=== PATIENT | female | born 1955 | race Caucasian/White ===

== ENCOUNTER 2024-10-04 13:26 | Inpatient (IN) | payer OTHER ==
[2024-10-04 15:18] LABS: ABSOLUTE IMMATURE GRANULOCYTES 0.12 x10^3/uL (0.0-0.031); BASOPHILS # 0.01 x10^3/uL (0.01-0.08); EOSINOPHIL % 0.4 % (0.7-5.8); EOSINOPHILS # 0.05 x10^3/uL (0.04-0.36); MCHC 31.7 g/dl (32.2-35.5); MEAN CELL VOLUME 93.5 fl (79.4-94.8); MEAN PLT VOLUME 11.6 fl (9.4-12.3); MONOCYTE # 0.82 x10^3/uL (0.24-0.86); MONOCYTE % 6.1 % (4.7-12.5); RDW 13.5 % (12.4-16.4)
[2024-10-04 15:25] LABS: BG HCT 30.0 % (32.4-45.2); VENOUS BASE EXCESS -5.4 mmol/L (-2-2); VENOUS O2 SATURATION 95.9 % (70-80); VENOUS PCO2 30.4 mmHg (38-52); VENOUS PH 7.401 (7.310-7.410)
[2024-10-04 15:52] LABS: CO2 23 mmol/L (21-32); GLUCOSE,RANDOM 123 mg/dL (74-106)
[2024-10-04 15:55] LABS: CREATININE 0.7 mg/dL (0.55-1.3); SGOT/AST 53 U/L (15-37)
[2024-10-04 15:57] LABS: TOT PROT 5.6 g/dl (6.4-8.2)
[2024-10-04 15:58] LABS: ALK PHOS 153 U/L (45-117)
[2024-10-04 16:05] LABS: EPI CELLS >36 /uL (0-25.1); HYALINE CASTS 2 /uL (0-3.1); URINE APPEARANCE CLOUDY; URINE BACTERIA 109 /uL (0-1359); URINE BILIRUBIN NEGATIVE (NEGATIVE); URINE COLOR YELLOW; URINE GLUCOSE (UA) NEGATIVE (NEGATIVE); URINE KETONE NEGATIVE (NEGATIVE); URINE LEUK ESTERASE 3+ (NEGATIVE); URINE NITRITE NEGATIVE (NEGATIVE); URINE PROTEIN 2+ (NEGATIVE); URINE UROBILINOGEN 1.0 mg/dL (0.2-1.0); URINE WBC 1192 /uL (0-25.8)
[2024-10-04 16:10] LABS: SGPT/ALT 12 U/L (13-61)
[2024-10-04 16:43] LABS: URINE RBC 39 /uL (0-23.9); YEAST NONE SEEN (NEGATIVE)
[2024-10-04] MEDS ORDERED: PIPERACILLIN/TAZOB 4.5 GM 4.5 GM/100 ML BAG IVPB ONE (16:50)
[2024-10-04] MEDS: VANCOMYCIN 1,000 MG in DEXTROSE 5%-WATER - 250 ML IVPB ONE (17:09)
[2024-10-04] MEDS: PIPERACILLIN/TAZOB 4.5 GM 4.5 GM in DEXTROSE 5%-WATER 100 ML IVPB ONE (17:09)
[2024-10-04] MEDS ORDERED: VANCOMYCIN 1 GM PREMIX (F) 1 GM/200 ML BAG ONE (17:43)
[2024-10-04] MEDS: VANCOMYCIN 1 GM PREMIX (F) 1 GM/200 ML BAG IVPB ONE (17:48)
[2024-10-04 20:08] LABS: CO2 24.0 mmol/L (21-32); GLUCOSE,RANDOM 117.0 mg/dL (74-106)
[2024-10-04 20:11] LABS: CREATININE 0.7 mg/dL (0.55-1.3)
[2024-10-05] MEDS ORDERED: ARTIFICIAL TEARS OPHTHALMIC DROPS OU PRN (02:27)
[2024-10-05] MEDS: levETIRAcetam 500 MG/5 ML INJECTION VIAL IVPB SCH (02:42)
[2024-10-05] MEDS: PIPERACILLIN/TAZOB 3.375 GM 3.375 GM in DEXTROSE 5%-WATER - 50 ML IVPB SCH (03:22)
[2024-10-05] MEDS: AZITHROMYCIN IVPB 500 MG in DEXTROSE 5%-WATER - 250 ML IVPB SCH (03:34)
[2024-10-05] MEDS ORDERED: ALBUTEROL SO4 0.083% IH SOL 2.5 MG/3 ML VIAL.NEB. NEB PRN (03:46)
[2024-10-05 03:48] VITALS: BMI 24.3
[2024-10-05] MEDS: ALBUTEROL SO4 2.5/IPRATROPIUM 0.5 INH SOL 3 ML VIAL.NEB. NEB SCH (04:20)
[2024-10-05] MEDS: VANCOMYCIN/WATER FOR INJ (PEG) 1,000 MG/200 ML BAG IVPB SCH (07:36)
[2024-10-05] MEDS: DOXYCYCLINE INJECTION 100 MG in DEXTROSE 5%-WATER 100 ML IVPB SCH (08:37)
[2024-10-05 09:03] LABS: IRON SERUM 15.0 ug/dL (50-175)
[2024-10-05] MEDS ORDERED: PREGABALIN 75 MG CAPSULE PO SCH (10:00)
[2024-10-05] MEDS ORDERED: DOXYCYCLINE INJECTION 100 MG in DEXTROSE 5%-WATER 100 ML IVPB SCH (10:00)
[2024-10-05] MEDS: PANTOPRAZOLE 40 MG TABLET PO SCH (10:07)
[2024-10-05] MEDS: SERTRALINE HCL 50 MG TABLET (FP) PO SCH (10:08)
[2024-10-05] MEDS: CELECOXIB 200 MG CAPSULE PO SCH (10:08)
[2024-10-05] MEDS: HEPARIN NA (PORCINE) 5,000 UNITS/ML 1ML VIAL SQ SCH (10:11)
[2024-10-05 10:21] VITALS: RESP 18
[2024-10-05 11:09] LABS: LDH 139.0 U/L (84-246)
[2024-10-05] MEDS: PREGABALIN 75 MG CAPSULE PO SCH (11:31)
[2024-10-05] MEDS: ROSUVASTATIN CA 5 MG TABLET PO SCH (22:16)
[2024-10-05] MEDS: DONEPEZIL HCL 5 MG TABLET (FP) PO SCH (22:16)
[2024-10-05] MEDS: traZODone HCL 50 MG TABLET (FP) PO SCH (22:17)
[2024-10-06 09:14] LABS: ABSOLUTE IMMATURE GRANULOCYTES 0.10 x10^3/uL (0.0-0.031); BASOPHILS # 0.02 x10^3/uL (0.01-0.08); EOSINOPHIL % 0.5 % (0.7-5.8); EOSINOPHILS # 0.04 x10^3/uL (0.04-0.36); MCHC 31.3 g/dl (32.2-35.5); MEAN CELL VOLUME 92.2 fl (79.4-94.8); MEAN PLT VOLUME 10.5 fl (9.4-12.3); MONOCYTE # 0.47 x10^3/uL (0.24-0.86); MONOCYTE % 5.3 % (4.7-12.5); RDW 13.2 % (12.4-16.4)
[2024-10-06 09:20] LABS: INR 1.28 (0.83-1.09); PROTHROMBIN TIME (PATIENT) 14.1 SEC (9.7-13.0)
[2024-10-06 09:23] LABS: ACTIVATED PTT 28.6 SECONDS (25.2-36.5)
[2024-10-06 09:58] LABS: CO2 25.0 mmol/L (21-32); GLUCOSE,RANDOM 109.0 mg/dL (74-106)
[2024-10-06] MEDS ORDERED: PATIENT'S OWN MEDICATION (NON-FORMULARY) (Omeprazole 20 MG Capsule.Dr) PO SCH (10:00)
[2024-10-06 10:02] LABS: CREATININE 0.5 mg/dL (0.55-1.3)
[2024-10-07] MEDS ORDERED: VANCOMYCIN/WATER FOR INJ (PEG) 1,000 MG/200 ML BAG IVPB SCH (06:00)
[2024-10-07] MEDS: ACETAMINOPHEN 325 MG TABLET (FP) PO ONE (07:02)
[2024-10-07] MEDS: PIPERACILLIN/TAZOB 3.375 GM 3.375 GM in DEXTROSE 5%-WATER - 50 ML IVPB SCH ×2 (17:36→18:21)
[2024-10-08 07:47] LABS: ABSOLUTE IMMATURE GRANULOCYTES 0.11 x10^3/uL (0.0-0.031); BASOPHILS # 0.01 x10^3/uL (0.01-0.08); EOSINOPHIL % 2.9 % (0.7-5.8); EOSINOPHILS # 0.17 x10^3/uL (0.04-0.36); MCHC 31.5 g/dl (32.2-35.5); MEAN CELL VOLUME 93.8 fl (79.4-94.8); MEAN PLT VOLUME 10.0 fl (9.4-12.3); MONOCYTE # 0.33 x10^3/uL (0.24-0.86); MONOCYTE % 5.7 % (4.7-12.5); RDW 12.9 % (12.4-16.4)
[2024-10-08] MEDS: DOXYCYCLINE HYCLATE 100 MG TABLET PO SCH (17:16)
[2024-10-08] MEDS: AMOX TR/POT CLAV 875MG/125MG TABLETS (FP) PO SCH (17:16)
[2024-10-09] MEDS: ACETAMINOPHEN 325 MG TABLET (FP) PO ONE ×2 (06:40→14:28)
[2024-10-09] MEDS: levETIRAcetam 500 MG TABLET (FP) PO SCH (10:35)
[2024-10-09 15:08] VITALS: BP 121/83; PULSE 91; TEMP 97.8
== END 2024-10-09 18:11 | DRG 190 ==
LOC: JER 13:26 → JERBED 21:57 → J8W 10-05 01:20
PROVIDERS: ADMIT Internal Medicine; ATTEND Internal Medicine
DX: J44.0 Chronic obstructive pulmonary disease with (acute) lower respiratory infection (principal); G93.41 Metabolic encephalopathy; J18.9 Pneumonia, unspecified organism; N39.0 Urinary tract infection, site not specified; F31.9 Bipolar disorder, unspecified; G40.909 Epilepsy, unspecified, not intractable, without status epilepticus; F03.90 Unspecified dementia, unspecified severity, without behavioral disturbance, psychotic disturbance, mood disturbance, and anxiety; I11.9 Hypertensive heart disease without heart failure; D64.9 Anemia, unspecified; E78.5 Hyperlipidemia, unspecified; F17.210 Nicotine dependence, cigarettes, uncomplicated
CPT/HCPCS: 36415; 70450-TC; 71045-TC-FY; 71275-TC; 80048; 80053; 81003; 82140; 82550; 82607; 82728; 82746; 82803; 82962; 83540; 83550; 83605; 83615; 83735; 84443; 84484; 85025; 85610; 85730; 86480; 87040; 87070; 87086; 87116; 87205; 87206; 87899; 93005; 93010; 94640; 99285-25